=== PATIENT | female | born 1945 | race African-American/Black ===

== ENCOUNTER → 2017-12-27 | Outpatient (CLI) | payer MEDICARE, MEDICAID ==
[~2017-12-27] MED LIST: ALBU18HF2 IH; BUDE6HFA IH; FURO-151 PO; LOP25 PO; POTA20TA82 PO; TESS PO; TIOT18CA3 IH
== END | disposition home or self-care (01) ==
LOC: RAD 10:45
PROVIDERS: ATTEND Internal Medicine Critical Care Medicine
DX: M51.36 Other intervertebral disc degeneration, lumbar region (principal); M48.061 Spinal stenosis, lumbar region without neurogenic claudication; M54.30 Sciatica, unspecified side
CPT/HCPCS: 72100; 72170

== ENCOUNTER → 2023-09-30 | Outpatient (CLI) | payer MEDICARE, MEDICAID ==
[~2023-09-30] MED LIST changes: -ALBU18HF2 IH; +ATOR20TA65 PO; +BARIUM SULFATE ONE; -BUDE6HFA IH; -FURO-151 PO; +FURO40TA5 PO; -LOP25 PO; +LORA10TA7 PO; +LOSA50TA41 PO; +MONT-39 PO; +PANT20TA17 PO; +POTA-204 PO; -POTA20TA82 PO; -TESS PO; -TIOT18CA3 IH; +ZOLP10TA2 PO
== END | disposition home or self-care (01) ==
LOC: CT 08:43
PROVIDERS: ATTEND Internal Medicine Gastroenterology
DX: I71.23 Aneurysm of the descending thoracic aorta, without rupture (principal); N28.1 Cyst of kidney, acquired; D50.9 Iron deficiency anemia, unspecified; I51.7 Cardiomegaly; Z90.49 Acquired absence of other specified parts of digestive tract
CPT/HCPCS: 74177